=== PATIENT | male | born 1965 | race Caucasian/White ===

== ENCOUNTER 2024-02-26 17:23 | Emergency (ER) | payer OTHER ==
[2024-02-26] MEDS ORDERED: CEFTRIAXONE 1000 MG/VIAL ONE (18:07)
[2024-02-26] MEDS ORDERED: PANTOPRAZOLE 40 MG INJ ONE (18:07)
[2024-02-26] MEDS ORDERED: NA CHLORIDE 0.9% 250 ML ONE (18:08)
[2024-02-26 18:18] LABS: Absolute Eosinophils 0.3 K/uL (0-0.5); Absolute Lymphocytes (CBC) 0.7 K/uL (0.7-4.9); Absolute Monocytes 0.3 K/uL (0.1-1.3); Absolute Neutrophil 1.8 K/uL (1.8-8.0); Basophils % 0.9 % (0-1.3); Eosinophils % 8.9 % (0-4.4); Hemoglobin 7.5 g/dL (13.6-17.9); Lymphocytes % 21.7 % (15.3-44.8); MCH 32.8 pg (27.0-35.0); MCHC 34.1 g/dL (32.0-36.0); MCV 96.4 fL (80-100); MPV 8.7 fL (7.6-11.3); Monocytes % 10.4 % (3.3-12.3); Neutrophils % 58.1 % (41.7-73.7); Nucleated Red Blood Cells % 0.1 % (0-0); Platelets 63 thou/uL (152-406); RBC Red Blood Cell Count 2.28 M/uL (4.33-5.43); Red Cell Distribution Width 19.3 % (12.1-15.2)
[2024-02-26 18:21] LABS: PT Prothrombin Time 13.3 SECONDS (9.4-12.5); PTT, Activated Partial Thromb 42.2 SECONDS (24.3-36.9); Protime INR 1.19
[2024-02-26 18:33] LABS: Albumin 3.5 g/dL (3.4-5.0); Anion Gap 11.7 mEq/L (5.0-15.0); Bilirubin Total 0.7 mg/dL (0.2-1.0); Globulin 3.5 g/dL (2.3-3.5); Potassium 4.7 mEq/L (3.5-5.1)
[2024-02-26 18:39] LABS: SARS-CoV-2 Antigen CONTROL BLUE LINE VIS/BG OK; SARS-CoV-2 Antigen Rapid Res Negative (Negative)
--- NOTE | 2024-02-26 18:51 | RAD REPORT ---
EXAMINATION: CT ABDOMEN AND PELVIS WITHOUT CONTRAST CLINICAL INDICATION: ABD PAIN TECHNIQUE: CT abdomen and pelvis was performed, without IV contrast, as per department protocol. Axia l, sagittal and coronal reconstructions were obtained. One or more of the following dose reduction techniques were used: Automated exposure control, adjustment of the mA and kV according to the patien t size, and iterative reconstruction. Unless otherwise specified, incidental findings do not require dedicated imaging follow-up. COMPARISON: No prior exam. FINDINGS: The lack of intravenous contrast limits the sensitivity of this exam for evaluation of solid visceral organs, vascular structures, and retroperitoneum. LOWER CHEST: Small right and trace left pleural effusion. Patchy airspace opacities in both lung base s, greater on the right noted. Cardiac size is prominent. Several metallic artifacts seen in the region of the stomach. LIVER:Markedly nodular and shrunken liver compatible cirrhosis. Moderate pneumobilia. SPLEEN: Mild splenomegaly. PANCREAS: No mass, ductal dilation, or roselyn-pancreatic fluid. ADRENALS: Normal; no mass. KIDNEYS AND URETERS: Normal size and contour. No hydronephrosis. URINARY BLADDER: Normal contour. GASTROINTESTINAL TRACT: Mild free fluid in the abdomen and pelvis. Edematous appearance to the small bowel mesentery with several prominent lymph nodes. APPENDIX: Normal appendix. LYMPH NODES: No lymphadenopathy. MUSCULOSKELETAL: No acute or suspicious osseous abnormality. ADDITIONAL FINDINGS: None. IMPRESSION: Significant liver cirrhosis. Mild ascites with general edematous pattern to the intra-abdominal fat. Moderate pneumobilia. Clear etiology for this is not apparent.
--- NOTE | 2024-02-26 18:58 | RAD REPORT ---
EXAMINATION: ONE VIEW CHEST XR CLINICAL INDICATION: COUGH TECHNIQUE: Frontal chest projection is submitted. Examination is limited by patient positioning and t echnique. COMPARISON: FINDINGS: Moderate bilateral pulmonary opacities most likely representing pulmonary edema. The heart is enlarge d. No displaced fractures identified. IMPRESSION: Moderate CHF versus volume overload.
[2024-02-26] MEDS ORDERED: FUROSEMIDE 40 MG/4 ML VIAL ONE (19:26)
--- NOTE | 2024-02-26 20:34 | RAD REPORT ---
EXAM: Right upper quadrant ultrasound. CLINICAL HISTORY: RUQ eval, pneumobilia COMPARISON: Recent CT study FINDINGS: Gallbladder: Normal. Bile ducts: No intrahepatic or extrahepatic biliary dilatation. Pneumobilia is typically not well vis ualized by ultrasound. Common bile duct measures 4 mm. Limited imaging of the liver shows cirrhosis. IMPRESSION: Negative gallbladder/biliary tree findings.
--- NOTE | 2024-02-26 21:13 | ER ---
Nurse's Notes [facility] Name: Narendra Irizarry Age: 58 yrs Sex: Male : 1965 Arrival Date: 02/26/2024 Time: 17:23 Bed 5 Private MD: Diagnosis: Actue on Chronic Renal Failule , pulmonary edema, hepatorenal failure, symptomatic anemia, acute diastolic heart failure Presentation: 02/25 17:30 Chief complaint: EMS states: patient was complaining of Shortness of breath and ap3 weakness/lethargy that started today. patient denies any pain. EMS states patient was 87% SPO2 on room air. Coronavirus screen: Client presents with at least one sign or symptom that may indicate coronavirus-19. Ebola Screen: No symptoms or risks identified at this time. Initial Sepsis Screen: Does the patient meet any 2 criteria? No. Patient's initial sepsis screen is negative. Does the patient have a suspected source of infection? No. Patient's initial sepsis screen is negative. Risk Assessment: Do you want to hurt yourself or someone else? Patient reports no desire to harm self or others. Onset of symptoms was February 26, 2024. 17:30 Method Of Arrival: [facility] ap3 17:30 Acuity: JIMMIE 2 ap3 Triage Assessment: 17:33 General: Appears uncomfortable, ill, Behavior is cooperative. Pain: Denies pain. Neuro: ap3 Level of Consciousness is awake, alert, obeys commands, Oriented to person, place, time, situation, Appropriate for age. Neuro: Reports weakness. Cardiovascular: Patient's skin is warm and dry. Respiratory: Reports shortness of breath Airway is patent Respiratory effort is even, unlabored, Respiratory pattern is regular, symmetrical, Onset: The symptoms/episode began/occurred gradually, the patient has moderate shortness of breath. Historical: - Allergies: 17:33 NSAIDS; ap3 - PMHx: 17:33 Anemia; ap3 - Immunization history:: Client reports receiving the 2nd dose of the Covid vaccine. - Infectious Disease History:: Denies. - Social history:: Smoking status: Patient denies any tobacco usage or history of. Screenin:34 Abuse screen: Denies threats or abuse. Nutritional screening: No deficits noted. ap3 Tuberculosis screening: No symptoms or risk factors identified. 19:32 [facility] ED Fall Risk Assessment (Adult) History of falling in the last 3 months, dd2 including since admission No falls in past 3 months (0 pts) Confusion or Disorientation No (0 pts) Intoxicated or Sedated No (0 pts) Impaired Gait No (0 pts) Mobility Assist Device Used No (0 pt) Altered Elimination No (0 pt) Score/Fall Risk Level 0 - 2 = Low Risk Oriented to surroundings, Maintained a safe environment, Educated pt \\T\\ family on fall prevention, incl call for assistance when getting out of bed, Assessed \\T\\ reinforced patient's understanding of fall precautions, Hourly rounding (assess needs \\T\\ fall precautionary measures) done. Assessment: 18:57 Reassessment: Pt gasping for air saying " I can't breather, turn the oxygen up." Pt on jb4 4L NC, increased to 6LNC and sat up in bed. No improvement noted. Pt placed no NRB at 15L. Pt appears to be more relaxed, respirations are still labored and tachypneic. Provider notified, received verbal order to call RT for bipap. RT called. 20:38 Reassessment: Patient appears in no apparent distress at this time. Patient and/or jb4 family updated on plan of care and expected duration. Pain level reassessed. Patient is alert, oriented x 3, equal unlabored respirations, skin warm/dry/pink. Pt is much more relaxed on bipap. Respirations are now even an unlabored with no s/s of pain or distress noted. 21:41 Reassessment: Patient appears in no apparent distress at this time. Patient and/or jb4 family updated on plan of care and expected duration. Pain level reassessed. Patient is alert, oriented x 3, equal unlabored respirations, skin warm/dry/pink. Vital Signs: 17:30 BP 184 / 82; Pulse 70; Resp 24; Temp 98.5; Pulse Ox 95% on 2 lpm NC; Weight 106.59 kg; ap3 Height 6 ft. 4 in. ; 17:40 BP 167 / 79; Pulse 68; Pulse Ox 94% on 2 lpm NC; ap3 18:59 BP 171 / 82; Pulse 68; Resp 26 S; Pulse Ox 100% on Non-rebreather mask; jb4 20:30 BP 130 / 64; Pulse 58; Resp 20; Pulse Ox 100% on BiPAP; FiO2 45 %; jb4 21:41 BP 132 / 69; Pulse 57; Resp 20; Pulse Ox 99% on BiPAP; FiO2 45 %; jb4 22:52 BP 141 / 72; Pulse 55; Resp 18; Pulse Ox 99% on bipap; dd2 02/26 00:48 BP 131 / 67; Pulse 56; Resp 18; Pulse Ox 100% on bipap; FiO2 45 %; dd2 02/25 17:30 Body Mass Index 28.60 (106.59 kg, 193.04 cm) ap3 ED Course: 02/25 17:24 Patient arrived in ED. aa5 17:25 Erik Zimmerman MD is Attending Physician. ec2 17:33 Triage completed. ap3 17:34 Patient has correct armband on for positive identification. Bed in low position. Call ap3 light in reach. Side rails up X2. Client placed on continuous cardiac and pulse oximetry monitoring. NIBP monitoring applied. tufter hand on. Pulse ox on. NIBP on. 17:34 Arm band placed on right wrist. ap3 17:39 Rosalino Burnett, MARTÍNEZ is Primary Nurse. bp 18:42 CT Abd/Pelvis - Without Contrast In Process Unspecified. EDMS 18:51 CXR XRAY In Process Unspecified. EDMS 20:05 Attending Physician role handed off by Erik Zimmerman MD ec2 20:05 Laureano Acevedo MD is Attending Physician. ec2 20:25 US Abdomen Limited In Process Unspecified. EDMS 02/26 00:35 Provided Education on: TRANSFER EDUCATION. dd2 01:02 Report given to MARTÍNEZ [facility]. dd2 02:12 No provider procedures requiring assistance completed. Patient transferred, IV remains dd2 in place. Administered Medications: 02/25 18:13 Drug: Pantoprazole IVP 80 mg IVP once Route: IVP; Site: left forearm; bp 19:08 Follow up: Response: No adverse reaction dd2 18:13 Drug: Rocephin IV 1 grams IV at bolus once; Given slow IV push per pharmacy bp instructions Route: IV; Rate: bolus; Site: left forearm; 19:08 Follow up: Response: No adverse reaction dd2 18:13 Drug: NS 0.9% IV 250 ml IV at bolus once; to be given as a bolus over 30 minutes Route: bp IV; Rate: bolus; Site: left forearm; 19:10 Follow up: IV Status: Completed infusion; IV Intake: 250ml dd2 19:33 Drug: Furosemide IVP 80 mg IVP once; give over 2 minutes Route: IVP; Site: left jb4 antecubital; 19:48 Follow up: Response: No adverse reaction dd2 Medication: 19:30 VIS not applicable for this client. dd2 Intake: 19:10 IV: 250ml; Total: 250ml. dd2 Outcome: 21:12 ER care complete, transfer ordered by MD. naranjo 02/26 01:55 Transferred by ground EMS to [facility], Transfer form completed. dd2 Condition: stable Instructed on the need for transfer, 02:15 Patient left the ED. dd2 Signatures: Dispatcher [employer] Jana Fritz RN RN aa5 Jorge Luis Acosta RN RN jb4 Rosalino Burnett RN RN bp Prokisch, Amanda, RN RN ap3 Laureano Acevedo MD MD sp4 Erik Zimmerman MD MD ec2 LIZBETH VELAZQUEZ RN RN dd2 Corrections: (The following items were deleted from the chart) 02/25 17:33 17:33 Allergies: No Known Allergies; ap3 ap3
--- NOTE | 2024-02-26 21:13 | EDPHYS ---
Physician Documentation [facility] Name: Narendra Irizarry Age: 58 yrs Sex: Male : 1965 Arrival Date: 02/26/2024 Time: 17:23 Bed 5 Private MD: ED Physician Laureano Acevedo HPI: 02/25 17:38 This 58 yrs old Male presents to ER via EMS with complaints of Shortness Of ec2 Breath. 17:38 Patient arrives today for evaluation of shortness of breath. Patient with history of ec2 anemia, previous history of GI bleed, history of cirrhosis arrives today for feeling unwell and short of breath. Reports previous admission to [facility] with previous endoscopy and blood transfusions.. Historical: - Allergies: 17:33 NSAIDS; ap3 - PMHx: 17:33 Anemia; ap3 - Immunization history:: Client reports receiving the 2nd dose of the Covid vaccine. - Infectious Disease History:: Denies. - Social history:: Smoking status: Patient denies any tobacco usage or history of. ROS: 17:38 Constitutional: as per hpi ec2 Exam: 17:38 Constitutional: GEN: NAD Head: atraumatic Eyes: EOMI Ears: External ears are ec2 normal. CV: regular rate LUNGS: Tachypnea without wheezes or rales ABD: Minimally distended, nontender, not guarding, not rigid SKIN: no evidence of rashes MSK: no evidence of trauma Vital Signs: 17:30 BP 184 / 82; Pulse 70; Resp 24; Temp 98.5; Pulse Ox 95% on 2 lpm NC; Weight 106.59 kg; ap3 Height 6 ft. 4 in. ; 17:40 BP 167 / 79; Pulse 68; Pulse Ox 94% on 2 lpm NC; ap3 18:59 BP 171 / 82; Pulse 68; Resp 26 S; Pulse Ox 100% on Non-rebreather mask; jb4 20:30 BP 130 / 64; Pulse 58; Resp 20; Pulse Ox 100% on BiPAP; FiO2 45 %; jb4 21:41 BP 132 / 69; Pulse 57; Resp 20; Pulse Ox 99% on BiPAP; FiO2 45 %; jb4 22:52 BP 141 / 72; Pulse 55; Resp 18; Pulse Ox 99% on bipap; dd2 02/26 00:48 BP 131 / 67; Pulse 56; Resp 18; Pulse Ox 100% on bipap; FiO2 45 %; dd2 02/25 17:30 Body Mass Index 28.60 (106.59 kg, 193.04 cm) ap3 MDM: 12 17:28 Medical Screening Exam initiated ec2 17:39 Data reviewed: vital signs, nurses notes. ED course: Patient arrives today for ec2 evaluation of weakness and shortness of breath. Examination revealing for tachypneic individual otherwise has some mild distention. Will obtain a septic workup, empirically treat with ceftriaxone. 17:40 ED course: EKG obtained, independently reviewed and interpreted by me, shows normal ec2 sinus rhythm, rate of 70, no acute ST segment elevations, intervals are nonactionable.. 18:40 ED course: Metabolic shows renal dysfunction with a creatinine of 3.86, GFR of 17. BNP ec2 elevated at 6 700. Lactic acid within normal ranges. CBC shows slight anemia along with leukopenia. Thrombocytopenia.. 19:12 ED course: CT imaging shows ascites, pneumobilia without underlying cause identified. ec2 Chest x-ray shows moderate CHF and volume overload. Flu and COVID testing negative. Clinically patient is volume overloaded with lower extremity edema and elevated BNP. Patient with increased work of breathing my reassessment subsequently placed the patient on BiPAP.. 19:27 ED course: Ultrasound shows pneumobilia without clear source, will obtain ultrasound ec2 for further elucidation of this.. 12 00:33 ED course: Patient was accepted at [facility]. . sp4 01:57 Differential diagnosis: asthma, Bronchitis CHF exacerbation, Chronic Obstructive sp4 Pulmonary Disease Myocardial Infarction pneumonia, Psychogenic. Consideration of Admission/Observation Escalation of care including admission/observation considered. ED course: [facility] did not have beds available. Patient was discussed with hospitalist Dr. Boland who reported that patient requires hepatology consult. Patient was discussed with [facility] and was accepted there for transfer. Patient accepted to MICU . 02/25 17:37 Order name: CBC with Diff; Complete Time: 21:26 ec2 02/25 17:37 Order name: CMP; Complete Time: 18:38 ec2 02/25 17:37 Order name: Lipase; Complete Time: 18:38 ec2 02/25 17:37 Order name: Blood Culture Adult (2) ec2 / 17:37 Order name: Lactate w/ 2H reflex if indic.; Complete Time: 18:38 ec2 / 17:37 Order name: Protime (+inr); Complete Time: 18:28 ec2 / 17:37 Order name: Ptt, Activated; Complete Time: 18:28 ec2 02/25 17:37 Order name: AMMONIA; Complete Time: 18:28 ec2 02/25 17:37 Order name: Influenza Screen (a \T\ B); Complete Time: 19:11 ec2 / 17:37 Order name: SARS RAPID; Complete Time: 19:11 ec2 02/25 17:37 Order name: Type And Screen ec2 02/25 17:57 Order name: NT PRO-BNP; Complete Time: 18:38 EDMS / 18:26 Order name: CBC Smear Scan; Complete Time: 21:26 EDMS 02/25 20:11 Order name: Antibody Identification EDMS 02/25 20:43 Order name: Troponin High Sensitivity; Complete Time: 01:57 sp4 / 23:58 Order name: CBC with Automated Diff EDMS / 23:58 Order name: Comprehensive Metabolic Panel EDMS 02/25 17:37 Order name: CT Abd/Pelvis - Without Contrast; Complete Time: 19:11 ec2 / 17:37 Order name: CXR XRAY; Complete Time: 19:11 ec2 / 19:16 Order name: US Abdomen Limited; Complete Time: 20:42 ec2 / 21:46 Order name: BiPap ([employer] Only) EDMS 02/25 17:37 Order name: EKG; Complete Time: 17:38 ec2 02/25 17:37 Order name: IV Saline Lock; Complete Time: 17:39 ec2 02/25 17:37 Order name: Labs collected and sent; Complete Time: 18:04 ec2 02/25 17:37 Order name: Accucheck; Complete Time: 17:39 ec2 02/25 17:37 Order name: Cardiac monitoring; Complete Time: 17:38 ec2 02/25 17:37 Order name: EKG - Nurse/Tech; Complete Time: 17:39 ec2 02/25 17:37 Order name: IV Saline Lock - Large Bore; Complete Time: 17:39 ec2 02/25 17:37 Order name: O2 Per Protocol; Complete Time: 17:38 ec2 02/25 17:37 Order name: O2 Sat Monitoring; Complete Time: 17:38 ec2 02/25 17:37 Order name: Vital Signs; Complete Time: 17:38 ec2 Administered Medications: 02/25 18:13 Drug: Pantoprazole IVP 80 mg IVP once Route: IVP; Site: left forearm; bp 19:08 Follow up: Response: No adverse reaction dd2 18:13 Drug: Rocephin IV 1 grams IV at bolus once; Given slow IV push per pharmacy bp instructions Route: IV; Rate: bolus; Site: left forearm; 19:08 Follow up: Response: No adverse reaction dd2 18:13 Drug: NS 0.9% IV 250 ml IV at bolus once; to be given as a bolus over 30 minutes Route: bp IV; Rate: bolus; Site: left forearm; 19:10 Follow up: IV Status: Completed infusion; IV Intake: 250ml dd2 19:33 Drug: Furosemide IVP 80 mg IVP once; give over 2 minutes Route: IVP; Site: left jb4 antecubital; 19:48 Follow up: Response: No adverse reaction dd2 Disposition: 02/26 00:33 Critical Care:. sp4 Disposition Summary: 02/26/24 21:12 Transfer Ordered Notes: Reason: Higher level of care sp4 Condition: Stable sp4 Problem: new sp4 Symptoms: have improved sp4 Transfer Location: [facility](02/27/24 01:57) sp4 Accepting Physician: Attending (02/27/24 02:15) dd2 Diagnosis - Actue on Chronic Renal Failule , pulmonary edema, hepatorenal failure, sp4 symptomatic anemia, acute diastolic heart failure Forms: - Medication Reconciliation Form sp4 - SBAR form sp4 Critical care time excluding procedures: 00:33 Critical care time: Bedside Care: 36 minutes, Consultation: 12 minutes, Family sp4 Intervention: 24 minutes. Total time: 72 minutes Signatures: Dispatcher [employer] EDJorge Luis Thibodeaux RN RN jb4 Rosalino Burnett RN RN bp Prokisch, Amanda, RN RN ap3 Laureano Acevedo MD MD sp4 Erik Zimmerman MD MD ec2 LIZBETH VELAZQUEZ, RN RN dd2 Corrections: (The following items were deleted from the chart) 02/25 17:33 17:33 Allergies: No Known Allergies; ap3 ap3 17:38 17:38 CBC+H.LAB.BRZ ordered. EDMS EDMS 17:38 17:38 COMPREHENSIVE METABOLIC PANEL+C.LAB.BRZ ordered. EDMS EDMS 17:38 17:38 LIPASE+C.LAB.BRZ ordered. EDMS EDMS 17:38 17:38 Urinalysis+U.LAB.BRZ ordered. EDMS EDMS 17:38 17:38 BLOOD CULTURE*+BA.LAB.BRZ ordered. EDMS EDMS 17:38 17:38 LACTATE+C.LAB.BRZ ordered. EDMS EDMS 17:38 17:38 PROTIME (+INR)+COAG.LAB.BRZ ordered. EDMS EDMS 17:38 17:38 PTT, ACTIVATED+COAG.LAB.BRZ ordered. EDMS EDMS 17:38 17:38 AMMONIA+C.LAB.BRZ ordered. EDMS EDMS 17:38 17:38 Influenza Screen (A \T\ B)+BA.LAB.BRZ ordered. EDMS EDMS 17:38 17:38 SARS-COV-2 Antigen Rapid+I.LAB.BRZ ordered. EDMS EDMS 17:38 17:38 TYPE AND SCREEN+BB.LAB.BRZ ordered. EDMS EDMS 17:58 17:40 PROBNP+C.LAB.BRZ ordered. EDMS EDMS 02/26 01:57 02/25 21:12 Attending MD naranjo sp4 02/26 01:57 02/25 21:12 [facility] sp4 sp4 02/26 02:15 01:57 Attending MD naranjo dd2
[2024-02-26 21:16] LABS: Anisocytosis 2+; Blood Morphology Comment NOTED (NOT SEEN); Platelet Estimate DECR; Poikilocytosis 1+; White Blood Cell Scan OK (OK)
[2024-02-26] MEDS ORDERED: ACETAMINOPHEN 325 MG TABLET PO PRN (23:53)
[2024-02-26] MEDS ORDERED: ONDANSETRON 4 MG/2 ML VIAL IV PRN (23:53)
[2024-02-26] MEDS ORDERED: ALBUTEROL 2.5 MG/3 ML NEB SOL NEB PRN (23:53)
--- NOTE | 2024-02-26 23:57 | P.HP ---
Certification for Inpatient Patient admitted to: Inpatient With expected LOS: >2 Midnights Practitioner: I am a practitioner with admitting privileges, knowledge of patient current condition, hospital course, and medical plan of care. Services: Services provided to patient in accordance with Admission requirements found in Title 42 Section 412.3 of the Code of Federal Regulations Patient History Date of Service: 02/26/24 History of Present Illness: 58 yrs old Male presents to ER via EMS with complaints of Shortness Of ec2 Breath. 17:38 Patient arrives today for evaluation of shortness of breath. Patient with history of ec2 anemia, previous history of GI bleed, history of cirrhosis arrives today for feeling unwell and short of breath. Reports previous admission to [facility] with previous endoscopy and blood transfusions.. Historical: - Allergies: 17:33 NSAIDS; ap3 - PMHx: 17:33 Anemia; Physical Examination - Vital Signs Pulse: 55 Pulse Ox (%): 99 - Studies Laboratory Data (last 24 hrs) 02/26/24 02/26/24 02/26/24 18:00 18:00 18:00 WBC 3.10 L Hgb 7.5 L Hct 22.0 L Plt Count 63 L PT 13.3 H INR 1.19 APTT 42.2 H Sodium 134 L Potassium 4.7 BUN 60 H Creatinine 3.86 H Glucose 149 H Total Bilirubin 0.7 AST 15 ALT 34 Alkaline Phosphatase 128 H Lipase 9 L Microbiology Data (last 24 hrs): 02/26/24 18:00 Nasopharnyx Influenza Type A Antigen Screen - Final 02/26/24 18:00 Nasopharnyx Influenza Type B Antigen Screen - Final Assessment and Plan - Advance Directives Does patient have a Living Will: No Does patient have a Durable POA for Healthcare: No
[2024-02-27 07:47] VITALS: TEMP 98.5
[2024-02-27 07:54] VITALS: BP 131/67; O2SAT 100
== END 2024-02-27 02:15 | disposition short-term general hospital (02) ==
LOC: ER 17:23
DX: N18.9 Chronic kidney disease, unspecified (principal); N17.9 Acute kidney failure, unspecified; I50.31 Acute diastolic (congestive) heart failure; D64.9 Anemia, unspecified; K76.7 Hepatorenal syndrome; Z11.52 Encounter for screening for COVID-19
CPT/HCPCS: 87040 ×2; 85025; 36415; 82140; 86900 ×2; 86880; 86850; 85610; 86870 ×2; 86901; 83605; 85730; 84484; 83690; 80053; 83880; 87804 ×2; 74176; 71045; 76705; 99285; 87811; 86978; 94660; J1940; J2470; J7050; J0696